=== PATIENT | male | born 1980 ===

== ENCOUNTER 2019-03-10 09:25 | Inpatient (IN) | payer OTHER ==
[2019-03-10] VITALS (11 sets, daily range): BP systolic 94–131; BP diastolic 48–69
[~2019-03-10] VITALS: Ht 170.2 cm; Wt 107.5 kg
[~2019-03-10 09:25] MED LIST: Bacitracin 50000 Units Vial ONE; Bacitracin Oint 15gm Tube TOPIC ONE; Bupivacaine w/Epi 0.5% 30ml Vial INJ ONE; Gelfoam Size TOPIC ONE; Heparin 1000 units/ml 1ml Vial ONE; Pantoprazole Inj IVP ONE; Thrombin 5000 units TOPIC ONE; Thrombin 5000 units spray kit TOPIC ONE; Vancomycin 1gm/D5W 275ml IVPB ONE
[2019-03-10] MEDS ORDERED: LR 1000ml 1,000 ML IVLG SCH ×2 (09:31→17:30)
--- NOTE | 2019-03-10 09:32 | Immediate Post-Op Evaluation ---
Immediate Post-Op Evalulation Immediate Post-Op Evalulation Procedure: TLIF L3-4 Date of Evaluation: Mar 10, 2019 Time of Evaluation: 16:45 IV Fluids: 1100 LR Blood Products: 0 Estimated Blood Loss: 300 Urinary Output: 200 Blood Pressure Systolic: 99 Blood Pressure Diastolic: 53 Pulse Rate: 71 Respiratory Rate: 16 O2 Sat by Pulse Oximetry: 98 Temperature (Fahrenheit): 99 Pain Score (1-10): 2 Nausea: No Vomiting: No Complications 0 Patient Status: awake, reacts, patent, extubated, none Hydration Status: adequate Dru Gram Vancomycin IV Given Within 1 Hr of Incision: Yes Time Given: 11:01 Hunter Campos MD Mar 10, 2019 09:32
[2019-03-10] MEDS ORDERED: Acetaminophen (Non formulary) 100 ML IV ONE (09:45)
[2019-03-10] MEDS ORDERED: LORazepam Inj 2mg/ml 1ml IV PRN ×2 (09:45→17:30)
[2019-03-10] MEDS ORDERED: Labetalol 5mg/ml 20ml vial IV PRN (09:45)
[2019-03-10] MEDS ORDERED: HYDROcodone/Acetamin 5/325 tab ORAL PRN ×2 (09:45→17:15)
[2019-03-10] MEDS ORDERED: Ketorolac 30mg Inj IV PRN ×2 (09:45)
[2019-03-10] MEDS ORDERED: oxyCODONE HCL/Acetaminophen 5/325mg ORAL PRN (09:45)
[2019-03-10] MEDS ORDERED: Hydromorphone 0.5mg/0.5ml inj IVP PRN ×2 (09:45→17:30)
[2019-03-10] MEDS ORDERED: Midazolam 2mg/2ml Inj IVP PRN (09:45)
[2019-03-10] MEDS ORDERED: Metoclopramide 10mg/2ml Inj IVP PRN (09:45)
[2019-03-10] MEDS ORDERED: Atropine Sulfate 0.4mg/ml inj IVP PRN (09:45)
[2019-03-10] MEDS ORDERED: fentaNYL 100 mcg/2 mL IV PRN ×2 (09:45→17:15)
[2019-03-10] MEDS ORDERED: HYDROcodone/Acetamin 7.5/325 tab ORAL PRN ×2 (09:45→17:15)
[2019-03-10] MEDS ORDERED: Meperidine 50mg/ml Inj(FOR RIGORS ONLY) IVP PRN ×2 (09:45→17:30)
[2019-03-10] MEDS ORDERED: DiphenhydrAMINE 50mg/ml Inj IVP PRN ×2 (09:45→17:15)
[2019-03-10] MEDS ORDERED: NKM (10:05)
--- NOTE | 2019-03-10 10:22 | Anethesia Preoperative Eval ---
Anesthesia Pre-op PMH/ROS General Date of Evaluation: Mar 10, 2019 Time of Evaluation: 10:54 Anesthesiologist: Andres ASA Score: ASA 2 Mallampati Score Class I : Soft palate, uvula, fauces, pillars visible Class II: Soft palate, uvula, fauces visible Class III: Soft palate, base of uvula visible Class IV: Only hard plate visible Mallampati Classification: Class II Surgeon: Rasheeda Diagnosis: Back Pain Surgical Procedure: TLIF L3-4 Family History: no anesthesia problems Allergies: Coded Allergies: No Known Allergies (Unverified , 03/08/19) Medications: see eMAR Patient NPO?: Yes NPO Date: Mar 09, 2019 NPO Time: 2229 Past Medical History Other: obesity - BMI 38 Anesthesia Pre-op Phys. Exam Physician Exam Last Vital Signs Date Time Temp Pulse Resp B/P (MAP) Pulse Ox O2 Delivery O2 Flow Rate FiO2 03/10/19 10:18 97.6 66 20 131/56 (81) 99 03/10/19 10:15 Room Air Constitutional: NAD Neurologic: CN 2-12 intact Cardiovascular: RRR Respiratory: CTA Gastrointestinal: S/NT/ND Airway Exam Mallampati Score: Class II MO: full ROM: full Teeth: intact Anesthesia Pre-op A/P Risk Assessment & Plan Assessment: ASA 2 Plan: GA, SED, GlideScope Go Status Change Before Surgery: No Pre-Antibiotics Dru Gram Vancomycin IV Given Within 1 Hr of Incision: Yes Time Given: 11:01 Hunter Campos MD Mar 10, 2019 10:22
[2019-03-10] MEDS ORDERED: Pantoprazole Inj ONE (10:44)
[2019-03-10] MEDS ORDERED: Vancomycin 1gm vial IVPB ONE (10:44)
[2019-03-10] MEDS ORDERED: Lidocaine 1% MPF 10mg/ml 5ml ONE (10:59)
[2019-03-10] MEDS ORDERED: Sodium Chloride 10ml vial INJ ONE (10:59)
[2019-03-10] MEDS ORDERED: Dexamethasone 4mg/ml vial ONE (10:59)
[2019-03-10] MEDS ORDERED: fentaNYL 100 mcg/2 mL IV ONE ×2 (10:59→15:31)
[2019-03-10] MEDS ORDERED: Propofol 1,000mg/ 100ml btl IV ONE (11:00)
[2019-03-10] MEDS ORDERED: LR 1000ml ONE (11:00)
[2019-03-10] MEDS ORDERED: Sterile Water Irrig 1000ml IRRIG ONE (11:00)
[2019-03-10] MEDS ORDERED: NS Irrig 1000ml ONE (11:00)
[2019-03-10] MEDS ORDERED: Lidocaine 1% Plain 30 ml INJ ONE ×2 (11:06→12:55)
--- NOTE | 2019-03-10 11:06 | Pre-Procedure Note/Attestation ---
Pre-Procedure Note/Attestation Complete Prior to Procedure Planned Procedure: bilateral Procedure Narrative: Redo posterior lumbar decompression, bilateral L3-4, interbody fusion and pedicle screw fixation L3-4 with use of allograft, autograft and iliac crest bone marrow aspirate. Attestation I attest that I discussed the nature of the procedure; its benefits; risks and complications; and alternatives (and the risks and benefits of such alternatives ), prior to the procedure, with the patient (or the patient's legal patient accounting representative). I attest that, if there was a reasonable possibility of needing a blood transfusion, the patient (or the patient's legal patient accounting representative) was given the [place] Department of Health Services standardized written summary, pursuant to the Samson Brendan Blood Safety Act ([place] Health and Safety Code # 1645, as amended). I attest that I re-evaluated the patient just prior to the surgery and that there has been no change in the patient's H&P, except as documented below: Alayna Vanessa MD Mar 10, 2019 11:06
[2019-03-10] MEDS ORDERED: Gelfoam Absorbable 1gm powder pkt TOPIC ONE (11:07)
[2019-03-10] MEDS ORDERED: Bacitracin 50000 Units Vial ONE (12:12)
[2019-03-10] MEDS ORDERED: Gelfoam Size TOPIC ONE (12:12)
[2019-03-10] MEDS ORDERED: Zemuron 50mg/5ml Inj IV ONE (12:50)
[2019-03-10] MEDS ORDERED: Neostigmine 1mg/ml 10ml Inj ONE (14:47)
[2019-03-10] MEDS ORDERED: Glycopyrrolate 0.2mg/ml 1ml Vial ONE (14:47)
--- NOTE | 2019-03-10 16:41 | Diagnostic Imaging Report ---
Indication: Intraoperative imaging COMPARISON: None FINDINGS: 8 fluoroscopic images were obtained intraoperatively. Fluoroscopic time 34 seconds. Instrumentation noted posterior to the lumbar spine followed by posterior fusion at L3-4 with the pedicle screws and fusion rods unilaterally. IMPRESSION: Intraoperative imaging as described above
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
[2019-03-10] MEDS ORDERED: DiphenhydrAMINE 50mg/ml Inj ONE (17:11)
--- NOTE | 2019-03-10 17:14 | General Progress Note ---
Progress Note Progress Note progress Note s/ Comfortable No leg pain. Normal sensation in the lower extremities. O/ Last 24 Hour Vital Signs Date Time Temp Pulse Resp B/P (MAP) Pulse Ox O2 Delivery O2 Flow Rate FiO2 03/10/19 17:00 68 15 103/52 97 Nasal Cannula 3 03/10/19 16:54 63 15 102/53 98 Nasal Cannula 3 03/10/19 16:44 66 21 98/50 97 Simple Mask 6 03/10/19 16:39 66 20 106/48 99 Simple Mask 6 03/10/19 16:34 99.0 75 16 99/53 99 Simple Mask 6 03/10/19 16:31 71 16 98 03/10/19 10:18 97.6 66 20 131/56 (81) 99 03/10/19 10:15 Room Air Alert and oriented x 4 Moves all extremities well normal sensation doing well admit lumbar brace Pt's is informed re: pt's condition Alayna Vanessa MD Mar 10, 2019 17:14
[2019-03-10] MEDS ORDERED: Milk of Magnesia 30ml Ud ORAL PRN (17:15)
--- NOTE | 2019-03-10 17:50 | NUR ---
NURSE NOTES: Patient received from PACU via bed to 305 at 1750 on O2 2LNC, in stable condition. Patient alert, oriented x4 calm. Spouse and son present at bedside. IVF (LR) infusing to LH at 100 ml/hr, RN connected to IV pump. Back dressing CDI. Ice pack applied to lower back. Hemovac in place, no output noted in tubing or container at this time. Bilateral SCDs on. CMS +, skin warm, wiggles, no NT, hand grasps/pedal pushes 5/5, strong and equal. FC in place, draining y/cl to gravity. Ice chips provided, no NV. Denies headache. Pain to lower back 5/10, will medicate as ordered. Lumbar brace at bedside. Reviewed all post op orders with patient and spouse, verbalized understanding. Oriented patient to room, medical equipment and call light for safety. Bed in lowest position, will continue to monitor.
[2019-03-10] MEDS: Docusate 100mg cap ORAL SCH (19:20)
[2019-03-10] MEDS: Docusate Sod/Senna tab ORAL SCH (19:20)
[2019-03-10] MEDS: HYDROmorphone 1mg/ml Carpuject IVP PRN (19:23)
--- NOTE | 2019-03-10 19:30 | NUR ---
HAND-OFF: Report given to Rossana SAMUELS. Endorsed all post orders and that still waiting on IVF NS +20KCL from pharmacy, (LR currently running at 100 ml/hr on IV pump), Regular diet tray, Hemovac no output/intact, Back dressing CDI, FC 75 ml y/cl output, Oral intake 1999, no NV, called respiratory for IS (RN demonstrated/instructed patient on IS and CDB exercises, patient returned demonstration, needs further teaching).
--- NOTE | 2019-03-10 19:32 | NUR ---
NURSE NOTES: Received report from ABRIL Martin. Patient alert, oriented x4, call light within reach. Back dressing dry and intact, hemovac present, intact. De La Paz catheter patent, draining clear yellow urine. Patient recently received pain medication. Reviewed spine surgery activity instructions with patient and . Verbalizes understanding.
[2019-03-10] MEDS: NS w/KCl 20mEq 1000ml 1,000 ML IV SCH (20:20)
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
[2019-03-10] MEDS: Vancomycin 1 GM in D5W 275 ML IVPB SCH (21:45)
--- NOTE | 2019-03-10 22:20 | NUR ---
NURSE NOTES: here to see patient.
--- NOTE | 2019-03-10 22:34 | General Progress Note ---
Assessment/Plan Status Narrative s/p lumbar spein fusion pt ot dvt prophaylxis perioperative antibiotic prophylaxis. Subjective Date patient seen: Mar 10, 2019 Time patient seen: 22:33 Allergies: Coded Allergies: No Known Allergies (Unverified , 03/08/19) Subjective has pain no fevernochills moving both legs Objective Last 24 Hour Vital Signs Date Time Temp Pulse Resp B/P (MAP) Pulse Ox O2 Delivery O2 Flow Rate FiO2 03/10/19 21:30 97.8 77 18 94/52 (66) 96 03/10/19 20:05 97 Nasal Cannula 2.0 28 03/10/19 20:00 97.8 74 18 98/62 (74) 97 03/10/19 17:50 99.0 78 20 112/69 (83) 96 03/10/19 17:30 98.6 69 14 106/60 99 Nasal Cannula 3 03/10/19 17:15 69 15 112/65 98 Nasal Cannula 3 03/10/19 17:00 68 15 103/52 97 Nasal Cannula 3 03/10/19 16:54 63 15 102/53 98 Nasal Cannula 3 03/10/19 16:44 66 21 98/50 97 Simple Mask 6 03/10/19 16:39 66 20 106/48 99 Simple Mask 6 03/10/19 16:34 99.0 75 16 99/53 99 Simple Mask 6 03/10/19 16:31 71 16 98 03/10/19 10:18 97.6 66 20 131/56 (81) 99 03/10/19 10:15 Room Air Height (Feet): 5 Height (Inches): 7.00 Weight (Pounds): 237 General Appearance: WD/WN Neck: other - no jvd Cardiovascular: normal rate, regular rhythm Respiratory/Chest: lungs clear Abdomen: non tender, soft Extremities: other - no edema Rod Mckeon MD Mar 10, 2019 22:34
[2019-03-11] MEDS: HYDROmorphone 1mg/ml Carpuject IVP PRN ×3 (00:26→08:41)
[2019-03-11 04:00] VITALS: BP 133/66
[2019-03-11] MEDS: NS w/KCl 20mEq 1000ml 1,000 ML IV SCH (06:00)
--- NOTE | 2019-03-11 06:20 | 48 Hour Post Anesthesia Eval ---
Post Anesthesia Evaluation Procedure: TLIF L3-4 Date of Evaluation: Mar 11, 2019 Time of Evaluation: 05:49 Blood Pressure Systolic: 133 0: 66 Pulse Rate: 71 Respiratory Rate: 16 Temperature (Fahrenheit): 98.3 O2 Sat by Pulse Oximetry: 98 Airway: patent Nausea: No Vomiting: No Pain Intensity: 2 Hydration Status: adequate Cardiopulmonary Status: Stable Mental Status/LOC: patient returned to baseline Follow-up Care/Observations: 0 Post-Anesthesia Complications: 0 Follow-up care needed: N/A Hunter Campos MD Mar 11, 2019 06:20
[2019-03-11 06:23] LABS: BASOPHILS % (AUTO) 0.3 % (0.0-2.0); EOSINOPHILS % (AUTO) 0.2 % (0.0-3.0); HEMATOCRIT 39.7 % (42.0-52.0); HEMOGLOBIN 13.3 G/DL (14.2-18.0); LYMPHOCYTES % (AUTO) 13.9 % (20.0-45.0); MEAN CORPUSCULAR VOLUME 92 FL (80-99); MONOCYTES % (AUTO) 7.7 % (1.0-10.0); NEUTROPHILS % (AUTO) 77.9 % (45.0-75.0); PLATELET COUNT 169 K/UL (150-450); RED BLOOD COUNT 4.31 M/UL (4.70-6.10); RED CELL DISTRIBUTION WIDTH 11.6 % (11.6-14.8); WHITE BLOOD COUNT 9.7 K/UL (4.8-10.8)
[2019-03-11 06:43] LABS: ANION GAP 5 mmol/L (5-15); BLOOD UREA NITROGEN 17 mg/dL (7-18); CALCIUM 8.4 MG/DL (8.5-10.1); CARBON DIOXIDE 29 MMOL/L (21-32); CHLORIDE 106 MMOL/L (98-107); CREATININE 1.2 MG/DL (0.55-1.30); POTASSIUM 3.9 MMOL/L (3.5-5.1); SODIUM 140 MMOL/L (136-145)
--- NOTE | 2019-03-11 07:30 | NUR ---
HAND-OFF: Report given to ABRIL Martin. Dr Vanessa called, orders placed as requested.
--- NOTE | 2019-03-11 07:40 | NUR ---
NURSE NOTES: Report received from Rossana SAMUELS, rounds made. Patient sleeping (awakes to name easily) in supine position in bed. No distress on RA. Encouraged IS use (demonstrates correctly). Denies need for pain medication at this time. IVF (NS +20KCL) infusing to LH at 100 ml/hr. Bilateral SCDs on. FC patent, draining to gravity, y/cl urine. Hemovac intact, no output noted. Back dressing CDI. Ice pack in place. Spouse and son at bedside. Call light in reach, bed in lowest position, will continue to monitor.
[2019-03-11 08:00] VITALS: BP 110/64
[2019-03-11] MEDS: Docusate 100mg cap ORAL SCH (08:42)
[2019-03-11] MEDS: Vancomycin 1 GM in D5W 275 ML IVPB SCH (08:42)
[2019-03-11] MEDS: Docusate Sod/Senna tab ORAL SCH (08:42)
[2019-03-11 12:00] VITALS: BP 115/61
--- NOTE | 2019-03-11 12:10 | NUR ---
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
--- NOTE | 2019-03-11 12:50 | NUR ---
NURSE NOTES: IVF and FC discontinued at 1150. Patient instructed to void in urinal. Voided 800 ml y/cl urine at this time without difficulty. Will continue to monitor.
--- NOTE | 2019-03-11 14:09 | General Progress Note ---
Progress Note Progress Note Neurosuregry POD #1 S/ doing very well. Incisional pain under control. No leg pain. Ambulated and voided O/ Last 24 Hour Vital Signs Date Time Temp Pulse Resp B/P (MAP) Pulse Ox O2 Delivery O2 Flow Rate FiO2 03/11/19 08:00 99.5 71 19 110/64 (79) 99 03/11/19 08:00 98 Nasal Cannula 2.0 28 03/11/19 06:20 71 16 98 03/11/19 04:00 98.3 71 18 133/66 (88) 98 03/11/19 00:00 17 03/10/19 21:30 97.8 77 18 94/52 (66) 96 03/10/19 21:00 Nasal Cannula 2.0 03/10/19 20:05 97 Nasal Cannula 2.0 28 03/10/19 20:00 97.8 74 18 98/62 (74) 97 03/10/19 17:50 99.0 78 20 112/69 (83) 96 03/10/19 17:30 98.6 69 14 106/60 99 Nasal Cannula 3 03/10/19 17:15 69 15 112/65 98 Nasal Cannula 3 03/10/19 17:00 68 15 103/52 97 Nasal Cannula 3 03/10/19 16:54 63 15 102/53 98 Nasal Cannula 3 03/10/19 16:44 66 21 98/50 97 Simple Mask 6 03/10/19 16:39 66 20 106/48 99 Simple Mask 6 03/10/19 16:34 99.0 75 16 99/53 99 Simple Mask 6 03/10/19 16:31 71 16 98 On exam pleasant. Alert and oriented Moves all extremities well incision is clean dry and intact. HV removed minimal output. labs: Laboratory Tests Test 03/11/19 05:08 White Blood Count 9.7 K/UL (4.8-10.8) Red Blood Count 4.31 M/UL (4.70-6.10) L Hemoglobin 13.3 G/DL (14.2-18.0) L Hematocrit 39.7 % (42.0-52.0) L Mean Corpuscular Volume 92 FL (80-99) Mean Corpuscular Hemoglobin 30.8 PG (27.0-31.0) Mean Corpuscular Hemoglobin Concent 33.4 G/DL (32.0-36.0) Red Cell Distribution Width 11.6 % (11.6-14.8) Platelet Count 169 K/UL (150-450) Mean Platelet Volume 7.5 FL (6.5-10.1) Neutrophils (%) (Auto) 77.9 % (45.0-75.0) H Lymphocytes (%) (Auto) 13.9 % (20.0-45.0) L Monocytes (%) (Auto) 7.7 % (1.0-10.0) Eosinophils (%) (Auto) 0.2 % (0.0-3.0) Basophils (%) (Auto) 0.3 % (0.0-2.0) Sodium Level 140 MMOL/L (136-145) Potassium Level 3.9 MMOL/L (3.5-5.1) Chloride Level 106 MMOL/L (98-107) Carbon Dioxide Level 29 MMOL/L (21-32) Anion Gap 5 mmol/L (5-15) Blood Urea Nitrogen 17 mg/dL (7-18) Creatinine 1.2 MG/DL (0.55-1.30) Estimat Glomerular Filtration Rate > 60 mL/min (>60) Glucose Level 128 MG/DL (74-106) H Calcium Level 8.4 MG/DL (8.5-10.1) L doing well d/c planning d/c instructions reviewed with the patient and nursing brace is at bedside and pt is comfortable using it. Alayna Vanessa MD Mar 11, 2019 14:09
--- NOTE | 2019-03-11 15:06 | NUR ---
P.T NOTE: P.T EVALUATION COMPLETED AND TREATMENT PER SPINAL PROTOCOL. PLEASE REFER TO P.T EVALUATION FOR FUNCTIONAL STATUS. SKILLED P.T SERVICE IS WARRANTED TO ENSURE SAFETY AND COMPLIANCE WITH SPINAL PRECAUTIONS IN PERFORMING ADL/FUNCTIONAL ACTIVITIES. RECOMMENDED DME: RAISED TOILET SEAT.
--- NOTE | 2019-03-11 15:30 | NUR ---
NURSE NOTES: Hemovac and back surgical dressing changed at [address] Vanessa (steri strips noted, no redness or swelling, island dressing applied). Discharge instructions given to patient by Dr. Vanessa, patient verbalized understanding. Patient up ambulating in halls with lumbar brace as ordered. Complains of feeling cold, at 1445 temperature 98.6. Will continue to monitor.
[2019-03-11 16:00] VITALS: BP 112/65
[2019-03-11] MEDS ORDERED: PERCOCET 10-321 EAC1 ORAL (16:06)
[2019-03-11] MEDS ORDERED: PERCOCET 10-321 EACH ORAL (16:07)
--- NOTE | 2019-03-11 16:49 | NUR ---
NURSE NOTES: Patient discharged from the unit stable condition with spouse at bed side discharge instruction given, detail discharge instruction discussed with patient, pt. instructed to call Dr. Vanessa office for 2wks follow up appointment, dressing given for ordered change in the 4th day. CN offered to refill medication in [facility] [place] [facility], patient and family stated they want to refill medication their own pharmacy, prescription given patient reported pain 5/10 pt. Refused to take pain medication. transported from the unit to the private vehicle by wheelchair transferred safe. IV removed.
--- NOTE | 2019-03-11 17:00 | NUR ---
NURSE NOTES: Patient received raised toilet seat upon discharge.
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
== END 2019-03-11 17:00 | disposition home or self-care (01) | DRG 455 ==
LOC: SDSOVERFLO 09:25 → 3E 17:45
PROC: 07DR3ZZ Extraction of Iliac Bone Marrow, Percutaneous Approach (ICD-10-PCS; principal; 2019-03-10 11:30)
PROC: 01NB0ZZ Release Lumbar Nerve, Open Approach (ICD-10-PCS; principal; 2019-03-10 11:30)
PROC: 4A11X4G Monitoring of Peripheral Nervous Electrical Activity, Intraoperative, External Approach (ICD-10-PCS; principal; 2019-03-10 11:30)
PROC: 0ST20ZZ Resection of Lumbar Vertebral Disc, Open Approach (ICD-10-PCS; principal; 2019-03-10 11:30)
PROC: 0SG0071 Fusion of Lumbar Vertebral Joint with Autologous Tissue Substitute, Posterior Approach, Posterior Column, Open Approach (ICD-10-PCS; principal; 2019-03-10 11:30)
PROC: 3E0U0GB Introduction of Recombinant Bone Morphogenetic Protein into Joints, Open Approach (ICD-10-PCS; principal; 2019-03-10 11:30)
PROC: 0SG00AJ Fusion of Lumbar Vertebral Joint with Interbody Fusion Device, Posterior Approach, Anterior Column, Open Approach (ICD-10-PCS; principal; 2019-03-10 11:30)
DX: M51.16 Intervertebral disc disorders with radiculopathy, lumbar region (principal); M48.061 Spinal stenosis, lumbar region without neurogenic claudication
CPT/HCPCS: 36415; 72020; 76000; 80048; 85025; 86850; 86900; 86901; 87081; 94003; 94150; C9399; J2405; J2710